=== PATIENT | male | born 1965 | race Caucasian/White ===

== ENCOUNTER 2017-08-17 11:49 | Day surgery (SDC) | payer OTHER ==
[2017-08-17] MEDS ORDERED: LR 1,000 ML IV ONE (12:10)
[2017-08-17] MEDS ORDERED: LIDOCAINE 1% 2 ML INJ ID PRN (12:10)
[2017-08-17] MEDS ORDERED: BUPIVACAINE 0.5% 30 ML SDV ONE (12:38)
[2017-08-17] MEDS ORDERED: LIDOCAINE 2% 5 ML SDV ONE (12:38)
[2017-08-17] MEDS ORDERED: MIDAZOLAM 2 MG/2 ML VIAL IVP ONE (12:45)
--- NOTE | 2017-08-17 12:47 | PDANEPAE ---
ANE History of Present Illness R plantar plate repair, Reta osteotomyh ANE Past Medical History - Cardiovascular History Hx Hypertension: No Hx Arrhythmias: No Hx Chest Pain: No Hx Coronary Artery / Peripheral Vascular Disease: No Hx CHF / Valvular Disease: No Hx Palpitations: No - Pulmonary History Hx COPD: No Hx Asthma/Reactive Airway Disease: No Hx Recent Upper Respiratory Infection: No Hx Oxygen in Use at Home: No Hx Sleep Apnea: No Sleep Apnea Screening Result - Last Documented: Negative - Neurologic History Hx Cerebrovascular Accident: No Hx Seizures: No Hx Dementia: No - Endocrine History Hx Diabetes: No - Renal History Hx Renal Disorders: No - Liver History Hx Hepatic Disorders: No - Neurological & Psychiatric Hx Hx Neurological and Psychiatric Disorders: No - Cancer History Hx Cancer: No - Congenital Disorder History Hx Congenital Disorders: No - GI History Hx Gastrointestinal Disorders: No - Other Health History Other Health History: wears reading glasses - Chronic Pain History Chronic Pain: Yes (right foot) - Surgical History Prior Surgeries: bilateral acl repair. right one being 12/2016 ANE Review of Systems Review of systems is: negative Review of Systems: - Exercise capacity Exercise capacity: >=4 METS METS (RN): 6 METS ANE Patient History - Allergies Allergies/Adverse Reactions: No Known Allergies Allergy (Verified 08/10/17 13:59) - Home Medications Home Medications: NK [No Known Home Meds] 08/10/17 [Last Taken Unknown] - NPO status NPO Status: no food or drink >8 hours - Anes Hx Anes Hx: no prior problems - Smoking Hx Smoking Status: Never smoked - Family Anes Hx Family Anes Hx: none Family Hx Anesthesia Complications: none ANE Labs/Vital Signs - Vital Signs Height: 173.99 cm Weight: 72.121 kg ANE Physical Exam - Airway Neck exam: FROM Mallampati Score: Class 2 Mouth exam: normal dental/mouth exam - Pulmonary Pulmonary: no respiratory distress - Cardiovascular Cardiovascular: regular rate and rhythym - ASA Status ASA Status: I ANE Anesthesia Plan Total IV Anesthesia: Yes
[2017-08-17 12:59] VITALS: TEMP 97.7
[2017-08-17] MEDS ORDERED: ceFAZolin 2 GM/SWFI 2 GM/20 ML SYR IVP ONE (13:16)
[2017-08-17] MEDS ORDERED: ceFAZolin 1 GM/5 ML SYR ONE (13:21)
--- NOTE | 2017-08-17 13:35 | PDHPUP ---
History & Physical Update H&P update statement: This history and physical update is based on an assessment of the patient which was completed after admission or registration (within 24 hours), but prior to the surgery/procedure. H&P update: H&P reviewed & patient examined
[2017-08-17] MEDS ORDERED: PROPOFOL/EMULSION 500 MG/50 ML BOTTLE IV ONE (13:51)
[2017-08-17] MEDS ORDERED: DEXAMETHASONE 4 MG/ML VIAL ONE (14:07)
--- NOTE | 2017-08-17 15:21 | POSTOPPROG ---
Post Op Note Date of Operation: 08/17/17 Surgeon: Sheri Lomax Auto Wash Buffer: None Anesthesiologist: Dr. 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
[2017-08-17] MEDS ORDERED: DEXAMETHASONE 4 MG/ML VIAL IVP PRN (15:22)
[2017-08-17] MEDS ORDERED: HYDROCODONE/APAP 5/325 TAB PO PRN (15:22)
[2017-08-17] MEDS ORDERED: ACETAMINOPHEN 500 MG TAB PO PRN (15:22)
[2017-08-17] MEDS ORDERED: ONDANSETRON 4 MG/2 ML VIAL IVP PRN (15:22)
[2017-08-17] MEDS ORDERED: OXYCODONE/APAP 5/325 TAB PO PRN ×2 (15:22→15:36)
[2017-08-17] MEDS ORDERED: fentaNYL 100 MCG/2 ML INJ IVP PRN (15:22)
[2017-08-17] MEDS ORDERED: NALOXONE HCL 0.4 MG/ML INJ IVP PRN (15:22)
--- NOTE | 2017-08-17 15:22 | POSTANESTH ---
Post Anesthetic Evaluation Cardiovascular Status: Normal, Stable, Similar to Pre-Op Cond Respiratory Status: Normal, Stable, Similar to Pre-op Cond. Level of Consciousness/Mental Status: Can Participate in Eval, Alert and Oriented Pain Control: Adequate, Prn Tx Ordered Nausea/Vomiting Control: Adequate, Prn Tx Ordered Complications Possibly Related to Anesthesia: None Noted
[2017-08-17 16:06] VITALS: BP 112/68; PULSE 55
[2017-08-17 16:18] VITALS: RESP 12; O2SAT 98
--- NOTE | 2017-08-18 00:25 | GOP ---
[f rep st] OPERATIVE REPORT DATE OF OPERATION: 08/17/2017 SURGEON: Sheri Lomax DPM ANESTHESIA: Local with monitored anesthesia care. ANESTHESIOLOGIST: Wayne Cabezas MD PREOPERATIVE DIAGNOSIS: Right foot 2nd metatarsophalangeal joint predislocation syndrome and metatarsalgia. POSTOPERATIVE DIAGNOSIS: Right foot 2nd metatarsophalangeal joint predislocation syndrome and metatarsalgia. PROCEDURE PERFORMED: Right foot 2nd metatarsophalangeal joint Reta osteotomy, 2nd metatarsal and plantar plate repair 2nd metatarsophalangeal joint. FINDINGS: Right 2nd metatarsophalangeal joint plantar plate tear with synovitis. ESTIMATED BLOOD LOSS: Minimal. DESCRIPTION OF PROCEDURE: Under mild sedation, the patient was brought into the operating room, placed on the operating table in supine position. Following IV sedation, local anesthesia was obtained about the right foot using 20 cc of a 1:1 mixture 0.5% Marcaine plain and 2% lidocaine plain. The foot was then scrubbed, prepped, and draped in the usual aseptic manner. A sterile pneumatic ankle tourniquet was placed about the right ankle. The foot was exsanguinated and tourniquet inflated to 225 mmHg. Attention was then directed to the 2nd metatarsophalangeal joint, where an incision was made proximally between the 2nd and 3rd metatarsal heads and extended dorsally over the 2nd toe. The incision was deepened through subcutaneous tissue with care taken to identify and retract all vital neural and vascular structures. All bleeders were cauterized as necessary. A linear periosteal incision was then made over the 2nd metatarsophalangeal joint. The periosteum and capsule were reflected medially and laterally to expose the 2nd metatarsal head at the operative site. A McGlamry elevator was used to free the metatarsal head. At this point, a sagittal saw was then used to create the Reta osteotomy through the 2nd metatarsal head. The osteotomy was made from dorsal distal to plantar proximal. The 2nd metatarsal head was then retracted as far proximally as possible and temporarily fixated with a K-wire. A 2nd K- wire was then inserted from [id number] across the base of the proximal phalanx of the 2nd toe. A distractor was used to distract the joint and the plantar plate evaluated. There was near complete rupture of the plantar plate noted with synovitis in the joint. The rupture was completed and the scorpion with the suture attached used to suture the plantar plate at the plantar aspect of the 2nd metatarsal head. Once the plantar plate was adequately grasped with the suture, attention was then directed to the proximal phalanx where the K- wire was used to create the glide hole for the suture to be passed. These were made from dorsal medial to plantar lateral and dorsal lateral to plantar medial. The suture passer was then used to pass the suture through the proximal phalanx. The suture was then left in place and not tightened until after the Reta osteotomy was fixated. The K-wires were removed and the 2nd metatarsal head placed into appropriate position and temporarily fixated. This was evaluated under fluoroscopy to ensure adequate parabola of the metatarsal heads. The 2nd metatarsal Reta osteotomy was then fixated using the 2 snap-off screws from the [employer] plantar plate repair kit. Excellent compression was noted with these screws. The temporary fixation was removed. The dorsal flange of bone was removed with a rongeur. The wound was irrigated with copious sterile saline-Ancef irrigation. At this point, the suture over the proximal phalanx was then tightened with the toe in appropriate position for the tightening and repair of the plantar plate. This was found to be in perfect position and held the toe in a rectus position. The wound was again irrigated and then closed with 3-0 Vicryl, 4-0 Monocryl, and 4-0 Prolene in a running subcuticular suture technique. The incision was dressed with Mastisol, Steri-Strips, Xeroform, 4 x 4 gauze, Demond, Sunday wrap. The tourniquet was deflated at 57 minutes. A prompt hyperemic response was noted to all digits of the right foot. The patient was then transferred to the recovery room with vital signs stable and vascular status intact. Following a period of postoperative monitoring, the patient will be discharged home. Advised to ice and elevate his foot. He is advised to keep the dressing clean, dry, and intact. He will follow up with me in the next week for dressing change and wound check. He is weightbearing as tolerated in the walking boot for the next 6 weeks. HEMOSTASIS: Pneumatic ankle tourniquet at 225 mmHg for 57 minutes. MATERIALS: [employer] plantar plate repair kit with 2 snap-off screws in the 2nd metatarsal. /[id number]/MODL MTDD
== END 2017-08-17 16:49 | disposition home or self-care (01) ==
LOC: FSGY 11:49
PROVIDERS: ATTEND Podiatrist Foot & Ankle Surgery
DX: M25.871 Other specified joint disorders, right ankle and foot (principal); M65.871 Other synovitis and tenosynovitis, right ankle and foot; M77.41 Metatarsalgia, right foot; I25.10 Atherosclerotic heart disease of native coronary artery without angina pectoris
CPT/HCPCS: 28308; 28313; 73630; C1769; C1713; J0690; J1100; J2250; J2704

== ENCOUNTER → 2017-09-18 | Outpatient (CLI) | payer OTHER | LOC: CIMAGING 11:43 | PROVIDERS: ATTEND Podiatrist Foot & Ankle Surgery | DX: Z09 Encounter for follow-up examination after completed treatment for conditions other than malignant neoplasm (principal); Z98.890 Other specified postprocedural states | CPT/HCPCS: 73630-PO ==